=== PATIENT | male | born 1985 | race Caucasian/White ===

== ENCOUNTER 2019-04-13 09:47 | Emergency (ER) | payer OTHER ==
[2019-04-13] MEDS ORDERED: Diphtheria,Pertussis(Acell),Tetanus Vaccine 0.5 ML SDV IM ONE (10:07)
[2019-04-13] MEDS ORDERED: cefTRIAXone 1 GM, Lidocaine 1% 2.1 ML IM ONE ×2 (10:08)
[2019-04-13] MEDS ORDERED: Bacitracin Oint 1 GM U/D Packet TOP ONE (10:09)
--- NOTE | 2019-04-13 10:28 | EDM.PDOC ---
ED HPI GENERAL MEDICAL PROBLEM - General Chief Complaint: Lower Extremity Injury/Pain Stated Complaint: INJURY TO R FOOT Time Seen by Provider: 04/13/19 10:28 Source of Information: Reports: Patient History Limitations: Reports: No Limitations - History of Present Illness INITIAL COMMENTS - FREE TEXT/NARRATIVE: pt dropped a drill on his foot yesterday. The drill portion punctured the foot. Today the foot is swollen and quite red. It is tender,. Onset: Other (pt got the puncture wound yesterday. 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, Fracture - Infectious Disease History Infectious Disease History: Reports: MRSA - Past Surgical History Male Surgical History: Reports: Other (See Below) Other Male Surgeries/Procedures: hydrocele Musculoskeletal Surgical History: Reports: Arthroscopic Knee, Arthroscopic Procedure, Shoulder Surgery Review of Systems - Review of Systems Review Of Systems: See Below Constitutional: Reports: No Symptoms Eyes: Reports: No Symptoms Ears: Reports: No Symptoms Nose: Reports: No Symptoms Mouth/Throat: Reports: No Symptoms Respiratory: Reports: No Symptoms Cardiovascular: Reports: No Symptoms GI/Abdominal: Reports: No Symptoms Musculoskeletal: Reports: Other ( rt foot has a obvious puncture wound. There is redness that is going up to the ankle. ) ED EXAM, GENERAL - Physical Exam Exam: See Below Free Text/Narrative:: pt has a puncture wound to the rt foot by the toes. There is redness that extends up to the ankle. Exam Limited By: No Limitations General Appearance: Alert, Mild Distress Eye Exam: Right Eye: Nystagmus Ears: Normal External Exam Nose: Normal Inspection Throat/Mouth: Normal Inspection Neurological: Other (rt foot has a puncture wound by the toes and there is redness that extends up by the ankle. ) Course - Vital Signs Last Recorded V/S: Last Vital Signs Temp 35.4 C 04/13/19 10:17 Pulse 78 04/13/19 10:17 Resp 16 04/13/19 10:17 BP 159/100 H 04/13/19 10:17 Pulse Ox 98 04/13/19 10:17 - Orders/Labs/Meds Orders: Active Orders 24 hr Category Date Time Status Vaccines to be Administered [RC] PER UNIT ROUTINE Care 04/13/19 10:08 Active Meds: Medications Discontinued Medications Generic Name Dose Route Start Last Admin Trade Name Eriberto PRN Reason Stop Dose Admin Bacitracin 1 dose 04/13/19 10:09 Bacitracin Oint 1 Gm TOP 04/13/19 10:10 ONETIME ONE Ceftriaxone Sodium 1 gm/ 0 gm 04/13/19 10:08 Lidocaine HCl 2.1 ml IM 04/13/19 10:09 ONETIME ONE Diphtheria/Tetanus/Acell Pertussis 0.5 ml 04/13/19 10:07 Adacel IM 04/13/19 10:08 .ONCE ONE Departure - Departure Time of Disposition: 10:26 Disposition: Home, Self-Care 01 Condition: Fair Clinical Impression: Puncture wound of right foot, Infected puncture wound - Discharge Information Referrals: PCP,None [Primary Care Provider] - Forms: ED Department Discharge Care Plan Goals: soak foot bid, -- in warm soapy water, augmentin 875 bid for 1 week. rt if this appears to be getting worse. - My Orders Last 24 Hours: My Active Orders 04/13/19 10:08 Vaccines to be Administered [RC] PER UNIT ROUTINE - Assessment/Plan Last 24 Hours: My Active Orders 04/13/19 10:08 Vaccines to be Administered [RC] PER UNIT ROUTINE
== END 2019-04-13 11:15 | disposition home or self-care (01) ==
LOC: JP.ED 09:47
DX: S91.331A Puncture wound without foreign body, right foot, initial encounter (principal); L08.9 Local infection of the skin and subcutaneous tissue, unspecified; Z23 Encounter for immunization; Z88.2 Allergy status to sulfonamides; Z79.899 Other long term (current) drug therapy; W20.8XXA Other cause of strike by thrown, projected or falling object, initial encounter
CPT/HCPCS: 90471; 90715; 96372; 99283; J0696; J2001